=== PATIENT | female | born 1995 | race Caucasian/White ===

== ENCOUNTER 2017-12-11 18:19 | Emergency (ER) | payer OTHER ==
--- NOTE | 2017-12-11 18:30 | PDOC ---
Rapid Medical Evaluation Time Seen by Provider: 12/11/17 18:28 Medical Evaluation: Allergies Allergy/AdvReac Type Severity Reaction Status Date / Time No Known Allergies Allergy Verified 03/12/16 11:09 12/11/17 18:29 I have performed a brief in-person evaluation of this patient. The patient presents with a chief complaint of: abscess to left posterior thigh x 1 week, denies fever, chills, nausea, vomiting, diarrhea Pertinent physical exam findings: N/A I have ordered the following: upreg The patient will proceed to the ED for further evaluation. Discharge Disposition - Diagnosis Abscess - Referrals - Patient Instructions - Post Discharge Activity
[2017-12-11 18:31] VITALS: BP 184/93; PULSE 105; TEMP 99; BMI 52.8
--- NOTE | 2017-12-11 18:56 | PDOC ---
History of Present Illness - General Chief Complaint: Abscess Boil Stated Complaint: CYST Time Seen by Provider: 12/11/17 18:28 History Source: Patient Exam Limitations: No Limitations - History of Present Illness Timing/Duration: unsure Associated Symptoms: reports: denies symptoms, fever/chills Past History - Past Medical History Allergies/Adverse Reactions: Allergies Allergy/AdvReac Type Severity Reaction Status Date / Time No Known Allergies Allergy Verified 12/11/17 18:31 Home Medications: Ambulatory Orders NK [No Known Home Medication] 12/11/17 Asthma: Yes COPD: No - Suicide/Smoking/Psychosocial Hx Smoking Status: Yes Smoking History: Current every day smoker Have you smoked in the past 12 months: Yes Number of Cigarettes Smoked Daily: 2 Information on smoking cessation initiated: No Hx Alcohol Use: Yes (SOCIAL) Drug/Substance Use Hx: No Substance Use Type: None *Physical Exam - Vital Signs Last Vital Signs Temp Pulse Resp BP Pulse Ox 99.0 F 105 H 20 184/93 98 12/11/17 18:26 12/11/17 18:26 12/11/17 18:26 12/11/17 18:26 12/11/17 18:26 *DC/Admit/Observation/Transfer Diagnosis at time of Disposition: Abscess - Referrals - Patient Instructions - Post Discharge Activity
--- NOTE | 2017-12-11 19:03 | PDOC ---
History of Present Illness - General Chief Complaint: Abscess Boil Stated Complaint: CYST Time Seen by Provider: 12/11/17 18:28 History Source: Patient Exam Limitations: No Limitations - History of Present Illness Initial Comments: Patient came to emergency department for evaluation of abscess to her upper left thigh. States suffers from boils and frequent folliculitis of her upper legs and buttocks. Has never had an abscess such as this. Denies drainage from area but states is felt feverish the past few days. Timing/Duration: reports: changing over time, getting worse Severity: Yes: moderate Location: reports: extremities Associated Symptoms: reports: denies symptoms (left thigh) Past History - Travel Traveled outside of the country in the last 30 days: No Close contact w/someone who was outside of country & ill: No - Past Medical History Allergies/Adverse Reactions: Allergies Allergy/AdvReac Type Severity Reaction Status Date / Time No Known Allergies Allergy Verified 12/11/17 18:31 Home Medications: Ambulatory Orders Oxycodone HCl/Acetaminophen [Percocet 5-325 mg Tablet -] 1 - 2 tab PO Q4H PRN # 7 tablet MDD 4 12/11/17 Sulfamethoxazole/Trimethoprim [Bactrim *Ds*] 1 each PO BID #14 tablet 12/11/17 Asthma: Yes COPD: No - Suicide/Smoking/Psychosocial Hx Smoking Status: Yes Smoking History: Current every day smoker Have you smoked in the past 12 months: Yes Number of Cigarettes Smoked Daily: 2 Information on smoking cessation initiated: No Hx Alcohol Use: Yes (SOCIAL) Drug/Substance Use Hx: No Substance Use Type: None Review of Systems - Review of Systems Able to Perform ROS?: Yes Is the patient limited Maldivian proficient: Yes Constitutional: Yes: Symptoms Reported HEENTM: Yes: See HPI. No: Symptoms Reported Musculoskeletal: Yes: Symptoms Reported, See HPI, Muscle Pain Integumentary: Yes: Symptoms Reported, See HPI, Lesions, Lumps All Other Systems: Reviewed and Negative *Physical Exam - Vital Signs Last Vital Signs Temp Pulse Resp BP Pulse Ox 99.0 F 105 H 20 184/93 98 12/11/17 18:26 12/11/17 18:26 12/11/17 18:26 12/11/17 18:26 12/11/17 18:26 - Physical Exam General Appearance: Yes: Nourished, Appropriately Dressed, Apparent Distress, Mild Distress HEENT: positive: KARISSA, Normal ENT Inspection, TMs Normal, Pharynx Normal Gastrointestinal/Abdominal: positive: Soft. negative: Tender Musculoskeletal: positive: Normal Inspection Extremity: positive: Normal Inspection, Normal Range of Motion, Other ( alterable healed, scarred, and early lesions noted to upper thighs and buttocks. Has one abscess on her upper left thigh that is approximately 3 cm and fluctuant). negative: Normal Capillary Refill Integumentary: positive: Normal Color, Dry, Warm Neurologic: positive: site coordinator II-XII NML intact, Fully Oriented, Alert, Normal Mood/ Affect, Normal Response, Motor Strength 5/5 Procedures - Incision and Drainage I&D Site: Left: Leg Betadine cleansed: Yes Anesthesia: 1% Lidocaine Blade Size: 11 Iodinated Packin/2 in Plain Packing: Yes Complications: none Dressing: Yes Progress Note - Progress Note Progress Note: Abscess, incised and drained. Started on Bactrim and culture pending. Given one Percocet for pain relief *DC/Admit/Observation/Transfer Diagnosis at time of Disposition: Abscess - Discharge Dispostion Disposition: HOME Condition at time of disposition: Stable Admit: No - Prescriptions Prescriptions: Oxycodone HCl/Acetaminophen [Percocet 5-325 mg Tablet -] 1 - 2 tab PO Q4H PRN # 7 tablet MDD 4 PRN Reason: Pain Sulfamethoxazole/Trimethoprim [Bactrim *Ds*] 1 each PO BID #14 tablet - Referrals Referrals: Rafael Drew MD [Primary Care Provider] - - Patient Instructions Printed Discharge Instructions: DI for Incision and Drainage of a Skin Abscess Additional Instructions: Rest, keep area elevated. Avoid strenuous activity or exercise until wound is healed Use hot soaks to area to bring more blood to the surface and encourage drainage May change dressings as needed to keep clean - trying to avoid removal of packing for 2 days. If packing needs to be changed, return to emergency department or with your followup physician for wound care and evaluation and repacking as needed If packing needs to be removed, then in 2 days, while in the shower remove dressing and quickly pull the packing taken out. Allow water from shower to wash area thoroughly for 2-3 minutes, and pat dry upon exit of shower and replace dressing. Change his dressing daily until the wound is completely healed. May use Tylenol or Motrin for mild pain relief Use stronger medications as directed and prescribed Continue all medications as prescribed Followup with private physician in 2-3 days for wound check Return to emergency Department for worsening swelling, pain, redness, fevers as needed - Post Discharge Activity Forms/Work/School Notes: Back to Work
[2017-12-11] MEDS ORDERED: SULFAMETHOXAZOLE/TRIMETHOPRIM 800MG/160MG D.S. TABLET PO ONE (19:04)
[2017-12-11] MEDS ORDERED: SULFAMETHOXAZOLE/TRIMETHOPRIM 800MG/160MG D.S. TABLET ONE (19:05)
== END 2017-12-11 19:33 | disposition home or self-care (01) ==
LOC: JERFT 18:19
PROC: 0J9M0ZZ Drainage of Left Upper Leg Subcutaneous Tissue and Fascia, Open Approach (ICD-10-PCS; principal; 2017-12-11)
DX: L02.416 Cutaneous abscess of left lower limb (principal)
CPT/HCPCS: 84703; 87070; 87205; 99281-25

== ENCOUNTER 2018-01-06 16:31 | Emergency (ER) | payer OTHER ==
[2018-01-06 16:35] VITALS: BP 114/45; TEMP 98.6; BMI 52.2
[2018-01-06] MEDS ORDERED: ALBUTEROL SO4 2.5/IPRATROPIUM 0.5 INH SOL 3 ML VIAL.NEB. NEB ONE ×3 (16:36→18:42)
--- NOTE | 2018-01-06 16:37 | PDOC ---
Rapid Medical Evaluation Time Seen by Provider: 01/06/18 16:32 Medical Evaluation: Allergies Allergy/AdvReac Type Severity Reaction Status Date / Time No Known Allergies Allergy Verified 01/06/18 16:32 02 16:32 The patient presents with a chief complaint of: Flu symptoms since Saturday. Admits to lethargy, cough, fevers, body aches. Took advil this morning. I have performed a brief in-person evaluation of this patient; Pertinent physical exam findings: ambulatory, in no respiratory distress; Tachy at 110. Afebrile. expiratory wheezing b/l I have ordered the following: flu swab, duoneb The patient will proceed to the ED for further evaluation.
[2018-01-06] MEDS ORDERED: IBUPROFEN 400 MG TABLET (FP) PO ONE ×2 (17:47→17:51)
[2018-01-06] MEDS ORDERED: predniSONE 20 MG TABLET (UD) PO ONE (17:48)
[2018-01-06] MEDS ORDERED: predniSONE 20 MG TABLET (UD) ONE (17:50)
--- NOTE | 2018-01-06 17:51 | PDOC ---
History of Present Illness - General Chief Complaint: Cold Symptoms Stated Complaint: COLD SYMPTOMS Time Seen by Provider: 01/06/18 16:32 History Source: Patient - History of Present Illness Timing/Duration: reports: other (4 days) Associated Symptoms: reports: cough, fever/chills, muscle aches, shortness of breath, wheezing Past History - Past Medical History Allergies/Adverse Reactions: Allergies Allergy/AdvReac Type Severity Reaction Status Date / Time No Known Allergies Allergy Verified 01/06/18 16:32 Home Medications: Ambulatory Orders Prednisone [Deltasone -] 40 mg PO DAILY #8 tablet 01/06/18 Asthma: Yes COPD: No - Suicide/Smoking/Psychosocial Hx Smoking Status: Yes Smoking History: Current every day smoker Have you smoked in the past 12 months: Yes Number of Cigarettes Smoked Daily: 2 Information on smoking cessation initiated: Yes 'Breaking Loose' booklet given: 01/06/18 Hx Alcohol Use: Yes (SOCIAL) Drug/Substance Use Hx: No Substance Use Type: None Review of Systems - Review of Systems Constitutional: Yes: Chills, Fever, Malaise, Weakness HEENTM: No: Ear Pain, Throat Pain Respiratory: Yes: Cough, Shortness of Breath, Wheezing *Physical Exam - Vital Signs Last Vital Signs Temp Pulse Resp BP Pulse Ox 98.6 F 114 H 18 114/45 100 01/06/18 16:32 01/06/18 16:32 01/06/18 16:32 01/06/18 16:32 01/06/18 16:32 - Physical Exam General Appearance: Yes: Appropriately Dressed. No: Apparent Distress HEENT: positive: Normal ENT Inspection, Normal Voice. negative: Scleral Icterus (R), Scleral Icterus (L) Neck: positive: Supple. negative: Lymphadenopathy (R), Lymphadenopathy (L) Respiratory/Chest: positive: Wheezing. negative: Respiratory Distress Cardiovascular: positive: S1, S2, Tachycardia Gastrointestinal/Abdominal: positive: Soft. 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 States she developed some shortness of breath and wheezing this a.m., consistent with her asthma and has been using her pump with some relief. Pt in no apparent distress in ED but tachycardic at triage with diffuse mild wheezing on exam. Flu was sent from triage and pending. Will treat for acute asthma flare 01/06/18 17:50 01/06/18 18:37 Flu neg. Patient improved with nebs. No wheezing on reassessment and able to ambulate without shortness of breath. Will discharge with Pred burst and supportive treatment for viral syndrome *DC/Admit/Observation/Transfer Diagnosis at time of Disposition: Viral syndrome Asthma flare Qualifiers: Asthma severity: mild Asthma persistence: intermittent Qualified Code(s): J45.21 - Mild intermittent asthma with (acute) exacerbation - Discharge Dispostion Disposition: HOME Condition at time of disposition: Improved - Prescriptions Prescriptions: Prednisone [Deltasone -] 40 mg PO DAILY #8 tablet - Referrals Referrals: Rafael Drew MD [Primary Care Provider] - - Patient Instructions Printed Discharge Instructions: Asthma -- Adult, DI for Viral Upper Respiratory Infection -- Adult - Post Discharge Activity
[2018-01-06] MEDS: ALBUTEROL SO4 2.5/IPRATROPIUM 0.5 INH SOL 3 ML VIAL.NEB. NEB SCH ×4 (18:17→19:17)
[2018-01-06 18:56] VITALS: PULSE 90
== END 2018-01-06 19:19 | disposition home or self-care (01) ==
LOC: JERFT 16:31
PROC: 3E0F7GC Introduction of Other Therapeutic Substance into Respiratory Tract, Via Natural or Artificial Opening (ICD-10-PCS; principal; 2018-01-06)
PROC: 3E0F7GC Introduction of Other Therapeutic Substance into Respiratory Tract, Via Natural or Artificial Opening (ICD-10-PCS; 2018-01-06)
DX: J45.21 Mild intermittent asthma with (acute) exacerbation (principal); B34.9 Viral infection, unspecified
CPT/HCPCS: 87804; 94640; 99281-25

== ENCOUNTER 2018-05-22 12:39 | Emergency (ER) | payer OTHER ==
--- NOTE | 2018-05-22 12:49 | PDOC ---
History of Present Illness - General Stated Complaint: CONGESTION, COUGH Time Seen by Provider: 05/22/18 12:48 Past History - Past Medical History Allergies/Adverse Reactions: Allergies Allergy/AdvReac Type Severity Reaction Status Date / Time No Known Allergies Allergy Verified 01/06/18 16:32 Home Medications: Ambulatory Orders predniSONE [Deltasone -] 40 mg PO DAILY #8 tablet 01/06/18 Asthma: Yes COPD: No - Suicide/Smoking/Psychosocial Hx Smoking Status: Yes Smoking History: Current every day smoker Have you smoked in the past 12 months: Yes Number of Cigarettes Smoked Daily: 2 'Breaking Loose' booklet given: 01/06/18 Hx Alcohol Use: Yes (SOCIAL) Drug/Substance Use Hx: No Substance Use Type: None
[2018-05-22 13:18] VITALS: BP 134/81; PULSE 71; TEMP 98.5; BMI 51.5
--- NOTE | 2018-05-22 13:39 | PDOC ---
History of Present Illness - General Chief Complaint: Cold Symptoms Stated Complaint: CONGESTION, COUGH Time Seen by Provider: 05/22/18 12:48 History Source: Patient Exam Limitations: No Limitations - History of Present Illness Initial Comments: 05/22/18 13:34 Patient came to emergency department with complaints of cough, whitish phlegm production on occasion, and some intermittent tightness. Suffers from asthma but ran out of her albuterol pump. Denies fever, purulent drainage from nose, no ear or throat pain. 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 Timing/Duration: reports: just prior to arrival Severity: reports: mild Associated Symptoms: reports: cough, fever/chills, nasal congestion, nasal drainage Past History - Travel Traveled outside of the country in the last 30 days: No Close contact w/someone who was outside of country & ill: No - Past Medical History Allergies/Adverse Reactions: Allergies Allergy/AdvReac Type Severity Reaction Status Date / Time No Known Allergies Allergy Verified 05/22/18 13:18 Home Medications: Ambulatory Orders Albuterol Sulfate [Proventil HFA Inhaler -] 1 - 2 inh PO QID #1 inhaler Cetirizine HCl [Zyrtec -] 10 mg PO DAILY #30 tablet 05/22/18 Asthma: Yes COPD: No - Suicide/Smoking/Psychosocial Hx Smoking Status: Yes Smoking History: Current every day smoker Have you smoked in the past 12 months: Yes Number of Cigarettes Smoked Daily: 2 Information on smoking cessation initiated: No 'Breaking Loose' booklet given: 01/06/18 Hx Alcohol Use: No Drug/Substance Use Hx: No Substance Use Type: None Review of Systems - Review of Systems Able to Perform ROS?: Yes Is the patient limited [place] proficient: Yes Constitutional: Yes: Symptoms Reported, See HPI, Malaise Respiratory: Yes: Symptoms reported, See HPI, Cough (non productive ). No: Wheezing Cardiac (ROS): No: Symptoms Reported : No: Symptoms Reported Musculoskeletal: No: Symptoms Reported Integumentary: Yes: Symptoms Reported All Other Systems: Reviewed and Negative *Physical Exam - Vital Signs Last Vital Signs Temp Pulse Resp BP Pulse Ox 98.5 F 71 17 134/81 98 05/22/18 13:15 05/22/18 13:15 05/22/18 13:15 05/22/18 13:15 05/22/18 13:15 - Physical Exam General Appearance: Yes: Nourished, Appropriately Dressed. No: Apparent Distress HEENT: positive: KARISSA, Normal ENT Inspection, Normal Voice, TMs Normal, Pharynx Normal, Nasal Congestion, Rhinorrhea Neck: positive: Supple. negative: Tender, Lymphadenopathy (R), Lymphadenopathy (L) Respiratory/Chest: positive: Lungs Clear, Normal Breath Sounds. negative: Rhonchi, Wheezing Gastrointestinal/Abdominal: positive: Soft. negative: Tender Extremity: positive: Normal Inspection, Normal Range of Motion Integumentary: positive: Normal Color, Dry, Warm Neurologic: positive: instructional technology coordinator II-XII NML intact, Fully Oriented, Alert, Normal Mood/ Affect, Normal Response, Motor Strength /5 Progress Note - Progress Note Progress Note: ALLERGIC rhinitis, mild, we'll treat with albuterol pumps when necessary and encourage antihistamine use daily *DC/Admit/Observation/Transfer Diagnosis at time of Disposition: Allergic rhinitis Qualifiers: Allergic rhinitis trigger: unspecified Allergic rhinitis seasonality: seasonal Qualified Code(s): J30.2 - Other seasonal allergic rhinitis - Discharge Dispostion Disposition: HOME Condition at time of disposition: Stable Decision to Admit order: No - Referrals - Patient Instructions Printed Discharge Instructions: DI for Allergic Rhinitis Additional Instructions: Rest, drink lots of fluids: Teas, water, soups Saltwater gargles. Consider humidifier in room at night Steamy showers/seem to face break up mucus Avoid contact with allergens, exposure to pollens, close windows on a windy day Lots of handwashing and good hygiene Continue [id number] medications for symptomatic relief- may use allergic eyedrops for itching I Continue antihistamines daily until pollen season is over; Zyrtec, Claritin, Silvana during the daytime and Benadryl at nighttime as will make sleepy Tylenol or Motrin for fever and pain Followup with private physician in one to 2 days as needed Consider following up with an gang worker/rn cvor for skin testing and possible allergy shots Return to emergency department for worsened symptoms, fevers, dehydration - Post Discharge Activity Forms/Work/School Notes: Back to Work
== END 2018-05-22 15:15 | disposition home or self-care (01) ==
LOC: JERFT 12:39
DX: J30.2 Other seasonal allergic rhinitis (principal); J45.909 Unspecified asthma, uncomplicated
CPT/HCPCS: 84703; 99281-25

== ENCOUNTER 2019-02-27 20:21 | Emergency (ER) | payer OTHER ==
--- NOTE | 2019-02-27 20:28 | PDOC ---
Rapid Medical Evaluation Time Seen by Provider: 02/27/19 20:23 Medical Evaluation: Allergies Allergy/AdvReac Type Severity Reaction Status Date / Time No Known Allergies Allergy Verified 05/22/18 13:18 02/27/19 20:23 I have performed a brief in-person evaluation of this patient. The patient presents with a chief complaint of: RUQ pain x several days, no associated sxs Pertinent physical exam findings: Tachy to 108, in NAD, no sig ttp on exam I have ordered the following:labs The patient will proceed to the ED for further evaluation. Discharge Disposition - Diagnosis RUQ pain - Referrals - Patient Instructions - Post Discharge Activity
[2019-02-27 20:34] VITALS: BP 175/92; PULSE 108; TEMP 98.7; BMI 53.1
[2019-02-27 20:53] LABS: BASO % 0.5 % (0-2.0); EOS % 0.9 % (0-4.5); HEMATOCRIT 42.5 % (32.4-45.2); HEMOGLOBIN 14.1 GM/dL (10.7-15.3); LYMPH % 37.3 % (8-40); MCH 29.5 pg (25.7-33.7); MCHC 33.1 g/dl (32.0-36.0); MEAN CELL VOLUME 88.9 fl (80-96); MEAN PLT VOLUME 7.8 fl (7.5-11.1); MONO % 4.9 % (3.8-10.2); NEUT % 56.4 % (42.8-82.8); PLATELET COUNT 275 K/MM3 (134-434); RBC 4.78 M/mm3 (3.60-5.2); RDW 12.7 % (11.6-15.6); WHITE BLOOD COUNT 11.3 K/mm3 (4.0-10.0)
[2019-02-27 20:57] LABS: HCG,QUALITATIVE URINE Negative; HYALINE CASTS 5 /hpf (0-8); PH,URINE 5.5 (5.0-8.0); URINE APPEARANCE CLEAR; URINE BACTERIA 328.4 /hpf (NEGATIVE); URINE BILIRUBIN NEGATIVE (NEGATIVE); URINE COLOR YELLOW; URINE GLUCOSE (UA) NEGATIVE (NEGATIVE); URINE KETONE TRACE (NEGATIVE); URINE LEUK ESTERASE 1+ (NEGATIVE); URINE NITRITE NEGATIVE (NEGATIVE); URINE PROTEIN NEGATIVE (NEGATIVE); URINE RBC 9 /hpf (0-4); URINE UROBILINOGEN 0.2 mg/dL (0.2-1.0); URINE WBC 10 /hpf (0-5)
--- NOTE | 2019-02-27 21:19 | PDOC ---
History of Present Illness <Tyra Luong - Last Filed: 02/28/19 00:25> - History of Present Illness Initial Comments: 02/27/19 21:18 Ms. Kendall is a 23 yo female w/ pmh of morbid obesity who presents for evaluation of 3-4 day history of RUQ abdominal pain. Patient reports it had been intermittent and unrelated to activity or PO intake until today when she began to experience "stabbing pain" that also occurred intermittently. Patient denies any other associated symptoms at this time. The patient denies chest pain, shortness of breath, headache and dizziness. Denies fever, chills, nausea, vomit, diarrhea and constipation. Denies dysuria, frequency, urgency and hematuria. <Julito Cross - Last Filed: 02/28/19 00:35> - General Chief Complaint: Pain Stated Complaint: RIGHT ABD PAIN Time Seen by Provider: 02/27/19 20:23 Past History <Tyra Luong - Last Filed: 02/28/19 00:25> - Past Medical History Asthma: Yes Cancer: No Cardiac Disorders: No CVA: No COPD: No - Surgical History Abdominal Surgery: No Appendectomy: No - Suicide/Smoking/Psychosocial Hx Smoking Status: Yes Smoking History: Current every day smoker Have you smoked in the past 12 months: Yes Number of Cigarettes Smoked Daily: 3 Information on smoking cessation initiated: No 'Breaking Loose' booklet given: 01/06/18 Hx Alcohol Use: No Drug/Substance Use Hx: No Substance Use Type: None <Julito Cross - Last Filed: 02/28/19 00:35> - Past Medical History Allergies/Adverse Reactions: Allergies Allergy/AdvReac Type Severity Reaction Status Date / Time No Known Allergies Allergy Verified 05/22/18 13:18 Home Medications: Ambulatory Orders Albuterol Sulfate [Proventil HFA Inhaler -] 1 - 2 inh PO QID #1 inhaler Cetirizine HCl [Zyrtec -] 10 mg PO DAILY #30 tablet 05/22/18 Cephalexin [Keflex] 500 mg PO TID #21 capsule 02/28/19 Review of Systems - Review of Systems Comments:: 02/27/19 21:18 GENERAL/CONSTITUTIONAL: No fever or chills. No weakness. HEAD, EYES, EARS, NOSE AND THROAT: No change in vision. No ear pain or discharge. No sore throat. CARDIOVASCULAR: No chest pain or shortness of breath RESPIRATORY: No cough, wheezing, or hemoptysis. GASTROINTESTINAL: +RUQ abdominal pain as described. No nausea, vomiting, diarrhea or constipation. GENITOURINARY: No dysuria, frequency, or change in urination. MUSCULOSKELETAL: No joint or muscle swelling or pain. No neck or back pain. SKIN: No rash NEUROLOGIC: No headache, vertigo, loss of consciousness, or change in strength/ sensation. ENDOCRINE: No increased thirst. No abnormal weight change HEMATOLOGIC/LYMPHATIC: No anemia, easy bleeding, or history of blood clots. ALLERGIC/IMMUNOLOGIC: No hives or skin allergy. <Julito Cross - Last Filed: 02/28/19 00:35> *Physical Exam - Vital Signs Last Vital Signs Temp Pulse Resp BP Pulse Ox 98.7 F 108 H 20 175/92 H 99 02/27/19 20:25 02/27/19 20:25 02/27/19 20:25 02/27/19 20:25 02/27/19 20:25 <Tyra Luong - Last Filed: 02/28/19 00:25> - Vital Signs Last Vital Signs Temp Pulse Resp BP Pulse Ox 98.7 F 108 H 20 175/92 H 99 02/27/19 20:25 02/27/19 20:25 02/27/19 20:25 02/27/19 20:25 02/27/19 20:25 - Physical Exam Comments: 02/27/19 21:18 GENERAL: +Patient morbidly obese. Awake, alert, and fully oriented, in no acute distress HEAD: No signs of trauma, normocephalic, atraumatic EYES: PERRLA, EOMI, sclera anicteric, conjunctiva clear ENT: Auricles normal inspection, hearing grossly normal, nares patent, oropharynx clear without exudates. Moist mucosa NECK: Normal ROM, supple, no lymphadenopathy, JVD, or masses LUNGS: No distress, speaks full sentences, clear to auscultation bilaterally HEART: Regular rate and rhythm, normal S1 and S2, no murmurs, rubs or gallops, peripheral pulses normal and equal bilaterally. ABDOMEN: +Mild RUQ TTP, R flank pain. Soft, normoactive bowel sounds. No guarding, no rebound. No masses EXTREMITIES: Normal inspection, Normal range of motion, no edema. No clubbing or cyanosis. NEUROLOGICAL: Cranial nerves II through XII grossly intact. Normal speech, normal gait, no focal sensorimotor deficits SKIN: Warm, Dry, normal turgor, no rashes or lesions noted. <DavidantoineJulito cast - Last Filed: 02/28/19 00:35> ED Treatment Course - LABORATORY CBC & Chemistry Diagram: 02/27/19 20:37 02/27/19 20:37 - ADDITIONAL ORDERS Additional order review: Laboratory Results 02/27/19 02/27/19 20:41 20:37 Sodium 140 Potassium 3.6 Chloride 107 Carbon Dioxide 26 Anion Gap 7 L BUN 11 Creatinine 0.7 Creat Clearance w eGFR 103.70 Random Glucose 102 Calcium 8.5 Total Bilirubin 0.1 L AST 13 L ALT 22 Alkaline Phosphatase 84 Total Protein 7.4 Albumin 3.9 Lipase 176 Urine Color Yellow Urine Appearance Clear Urine pH 5.5 Ur Specific [place] 1.025 Urine Protein Negative Urine Glucose (UA) Negative Urine Ketones Trace H Urine Blood Negative Urine Nitrite Negative Urine Bilirubin Negative Urine Urobilinogen 0.2 Ur Leukocyte Esterase 1+ H Urine WBC (Auto) 10 Urine RBC (Auto) 9 Urine Casts (Auto) 5 U Epithel Cells (Auto) 5.0 Urine Bacteria (Auto) 328.4 Urine HCG, Qual Negative 02/27/19 20:37 RBC 4.78 MCV 88.9 MCHC 33.1 RDW 12.7 MPV 7.8 Neutrophils % 56.4 Lymphocytes % 37.3 Monocytes % 4.9 Eosinophils % 0.9 Basophils % 0.5 - RADIOLOGY Radiology Studies Ordered: Category Date Time Status SPIRAL- RENAL-STONE CT [CT] Stat CT Scan 02/27/19 22:15 Completed ABDOMEN US -LIMITED [US] Stat Ultrasound 02/27/19 21:31 Taken - Medications Given in the ED: ED Medications Discontinued Medications Generic Name Dose Route Start Last Admin Trade Name Freq PRN Reason Stop Dose Admin Cephalexin HCl 500 mg 02/27/19 23:02 02/27/19 23:12 Keflex - PO 02/27/19 23:03 500 mg ONCE ONE Administration Ibuprofen 600 mg 02/27/19 23:02 02/27/19 23:12 Motrin - PO 02/27/19 23:03 600 mg ONCE ONE Administration <Tyra Luong - Last Filed: 02/28/19 00:25> - LABORATORY CBC & Chemistry Diagram: 02/27/19 20:37 02/27/19 20:37 - ADDITIONAL ORDERS Additional order review: Laboratory Results 02/27/19 20:41 Urine Color Yellow Urine Appearance Clear Urine pH 5.5 Ur Specific [place] 1.025 Urine Protein Negative Urine Glucose (UA) Negative Urine Ketones Trace H Urine Blood Negative Urine Nitrite Negative Urine Bilirubin Negative Urine Urobilinogen 0.2 Ur Leukocyte Esterase 1+ H Urine WBC (Auto) 10 Urine RBC (Auto) 9 Urine Casts (Auto) 5 U Epithel Cells (Auto) 5.0 Urine Bacteria (Auto) 328.4 Urine HCG, Qual Negative 02/27/19 20:37 RBC 4.78 MCV 88.9 MCHC 33.1 RDW 12.7 MPV 7.8 Neutrophils % 56.4 Lymphocytes % 37.3 Monocytes % 4.9 Eosinophils % 0.9 Basophils % 0.5 <Julito Cross - Last Filed: 02/28/19 00:35> Medical Decision Making - Medical Decision Making 02/28/19 00:32 Ms. Kendall is a 23 yo female w/ pmh as described who presents for evaluation of symptoms concerning for cholecystitis vs. UTI vs. pyelonephritis. Patient evaluated with labs as below and found to have UTI. CT/US performed to r/o cholelithiasis/pyelonephritis/kidney stone both negative. ABX sent to patient's pharmacy for UTI. No concern for acute process at this time. Discharging to home. Laboratory Results - last 24 hr 02/27/19 02/27/19 02/27/19 20:37 20:37 20:41 WBC 11.3 H RBC 4.78 Hgb 14.1 Hct 42.5 MCV 88.9 MCH 29.5 MCHC 33.1 RDW 12.7 Plt Count 275 MPV 7.8 Absolute Neuts (auto) 6.4 Neutrophils % 56.4 Lymphocytes % 37.3 Monocytes % 4.9 Eosinophils % 0.9 Basophils % 0.5 Nucleated RBC % 0 Sodium 140 Potassium 3.6 Chloride 107 Carbon Dioxide 26 Anion Gap 7 L BUN 11 Creatinine 0.7 Creat Clearance w eGFR 103.70 Random Glucose 102 Calcium 8.5 Total Bilirubin 0.1 L AST 13 L ALT 22 Alkaline Phosphatase 84 Total Protein 7.4 Albumin 3.9 Lipase 176 Urine Color Yellow Urine Appearance Clear Urine pH 5.5 Ur Specific [place] 1.025 Urine Protein Negative Urine Glucose (UA) Negative Urine Ketones Trace H Urine Blood Negative Urine Nitrite Negative Urine Bilirubin Negative Urine Urobilinogen 0.2 Ur Leukocyte Esterase 1+ H Urine WBC (Auto) 10 Urine RBC (Auto) 9 Urine Casts (Auto) 5 U Epithel Cells (Auto) 5.0 Urine Bacteria (Auto) 328.4 Urine HCG, Qual Negative <Julito Cross - Last Filed: 02/28/19 00:35> *DC/Admit/Observation/Transfer - Discharge Dispostion Decision to Admit order: No <Tyra Luong - Last Filed: 02/28/19 00:25> <Julito Cross - Last Filed: 02/28/19 00:35> Diagnosis at time of Disposition: RUQ pain UTI (urinary tract infection) Qualifiers: Urinary tract infection type: site unspecified Hematuria presence: without hematuria Qualified Code(s): N39.0 - Urinary tract infection, site not specified - Discharge Dispostion Disposition: HOME Condition at time of disposition: Stable - Prescriptions Prescriptions: Cephalexin [Keflex] 500 mg PO TID #21 capsule - Patient Instructions Printed Discharge Instructions: Eating a Diet Rich in Fruits and Vegetables, Urinary Tract Infection Additional Instructions: You were evaluated today in the ER for your pain and found to have a UTI. We performed CT and ultrasound imaging with no further concerning findings. We started you on antibiotics and sent medication to your pharmacy. Take all medications as proscribed. Follow-up with primary care provider early next week for further evaluation. Return to ER if any fever, chills, increase in pain, or other concerning symptoms.
[2019-02-27 21:21] LABS: ALBUMIN 3.9 g/dl (3.4-5.0); ALK PHOS 84 U/L (45-117); ANION GAP 7 MMOL/L (8-16); BILIRUBIN,TOTAL 0.1 mg/dL (0.2-1); BLOOD UREA NITROGEN 11 mg/dL (7-18); CALCIUM 8.5 mg/dL (8.5-10.1); CHLORIDE 107 mmol/L (98-107); CO2 26 mmol/L (21-32); CREATININE 0.7 mg/dL (0.55-1.3); GLUCOSE,RANDOM 102 mg/dL (74-106); LIPASE 176 U/L (73-393); POTASSIUM 3.6 mmol/L (3.5-5.1); SGOT/AST 13 U/L (15-37); SGPT/ALT 22 U/L (13-61); SODIUM 140 mmol/L (136-145); TOT PROT 7.4 g/dl (6.4-8.2)
--- NOTE | 2019-02-27 21:30 | PDOC ---
Attending Attestation - Resident Resident Name: Julito Cross - ED Attending Attestation I have performed the following: I have examined & evaluated the patient, The case was reviewed & discussed with the resident, I agree w/resident's findings & plan - Medical Decision Making 02/27/19 23:04 CT AP normal; however, mom had a GB removal 3-4 years ago and pt is morbidly obese and she is complaining of RUQ pain and she has pain with palpation of the RUQ beneath the ribs. I will get a sono of the GB to r/o cholecystitis or stones. Labs demonstrate UTI. We will treat with keflex. <Tyra Luong - Last Filed: 02/27/19 23:04> - HPI HPI: 02/27/19 23:09 The patient is a 23 year old female with no reported past medical history presents to the emergency department with abdominal pain. The patient presents with 3-4 days of right upper quadrant and right flank pain that radiates to the back. The patient reports the pains been ongoing for the past 4-5 days, denies any known aggravation or alleviation factor. Denies nausea, vomiting, diarrhea, constipation, fever, chills, cough, dysuria, hematuria, frequency or urgency to urinate. - Physicial Exam PE: 02/27/19 23:09 GENERAL: The patient is in no acute distress. Afebril. NECK: Normal range of motion, supple, no nuchal rigidity LUNGS: Breath sounds equal, clear to auscultation bilaterally. No wheezes, and no crackles. HEART: Regular rate and rhythm, normal S1 and S2 without murmur, rub or gallop. ABDOMEN: No flank tenderness, minimal tenderness with pressing the right anterior floating ribs, minimal RUQ tenderness palpation beneath the ribs, no rebound or guarding. No supra-pubic tenderess EXTREMITIES: Normal range of motion, no edema. No spinal tenderness. No pitting edema. NEUROLOGICAL: Cranial nerves II through XII grossly intact. Normal speech. No focal neurological deficits. SKIN: Warm, Dry, normal turgor, no rashes or lesions noted. No rash on the trunk. - Medical Decision Making 02/27/19 23:09 Documentation prepared by Eugenia Velasco, acting as medical technologist prn for Tyra Luong MD <Eugenia Velasco - Last Filed: 02/27/19 23:09>
[2019-02-27] MEDS ORDERED: CEPHALEXIN MONOHYDRATE 500 MG CAPSULE (UD) PO ONE (23:02)
[2019-02-27] MEDS ORDERED: IBUPROFEN 600 MG TABLET (FP) PO ONE ×2 (23:02→23:10)
[2019-02-27] MEDS ORDERED: CEPHALEXIN MONOHYDRATE 500 MG CAPSULE (UD) ONE (23:10)
== END 2019-02-28 00:39 | disposition home or self-care (01) ==
LOC: JER 20:21
DX: N39.0 Urinary tract infection, site not specified (principal); R10.11 Right upper quadrant pain; E66.01 Morbid (severe) obesity due to excess calories; Z68.43 Body mass index [BMI] 50.0-59.9, adult
CPT/HCPCS: 36415; 74176-TC; 76705-TC; 80053; 81003; 83690; 84703; 85025; 99282-25

== ENCOUNTER 2023-06-26 05:34 | Day surgery (SDC) | payer OTHER ==
[2023-06-26 05:44] VITALS: BMI 60.5
[2023-06-26] MEDS ORDERED: ACETAMINOPHEN 1000 MG/100 ML BAG IVPB ONE ×2 (07:18→17:22)
[2023-06-26] MEDS ORDERED: ONDANSETRON 4 MG/2 ML VIAL IVPUSH ONE (07:18)
[2023-06-26] MEDS ORDERED: SODIUM CHLORIDE 1,000 ML IV STA (07:18)
[2023-06-26] MEDS ORDERED: ACETAMINOPHEN INJECTION 100 ML IVPB ONE ×2 (08:52→17:57)
[2023-06-26] MEDS ORDERED: ONDANSETRON 4 MG/2 ML VIAL ONE ×2 (08:52→16:25)
[2023-06-26 08:53] LABS: BASO % 0.3 % (0-2.0); EOS % 0.3 % (0-4.5); HEMATOCRIT 42.8 % (32.4-45.2); HEMOGLOBIN 13.8 GM/dL (10.7-15.3); LYMPH % 17.5 % (8-40); MCH 28.6 pg (25.7-33.7); MCHC 32.3 g/dl (32.0-36.0); MEAN CELL VOLUME 88.4 fl (80-96); MEAN PLT VOLUME 8.4 fl (7.5-11.1); NEUT % 74.9 % (42.8-82.8); PLATELET COUNT 285 10^3/uL (134-434); RBC 4.84 M/mm3 (3.60-5.2); WHITE BLOOD COUNT 8.2 K/mm3 (4.0-10.0)
[2023-06-26 09:00] LABS: CHLORIDE 109 mmol/L (98-107); POTASSIUM 4.5 mmol/L (3.5-5.1); SODIUM 140 mmol/L (136-145)
[2023-06-26 09:02] LABS: CALCIUM 8.6 mg/dL (8.5-10.1)
[2023-06-26 09:03] LABS: ALBUMIN 3.5 g/dl (3.4-5.0); ANION GAP 5 MMOL/L (8-16); BLOOD UREA NITROGEN 10.8 mg/dL (7-18); CO2 26 mmol/L (21-32); GLUCOSE,RANDOM 113 mg/dL (74-106); LIPASE 143 U/L (73-393)
[2023-06-26 09:06] LABS: CREATININE 0.8 mg/dL (0.55-1.3); SGOT/AST 245 U/L (15-37); SGPT/ALT 163 U/L (13-61)
[2023-06-26 09:07] LABS: TOT PROT 7.2 g/dl (6.4-8.2)
[2023-06-26 09:08] LABS: BILIRUBIN,TOTAL 1.2 mg/dL (0.2-1)
[2023-06-26 09:09] LABS: ALK PHOS 113 U/L (45-117)
[2023-06-26] MEDS ORDERED: PIPERACILLIN/TAZOB 3.375 GM 3.375 GM in DEXTROSE 5%-WATER - 50 ML IVPB ONE (10:21)
[2023-06-26] MEDS ORDERED: PIPERACILLIN/TAZOB 3.375 GM 3.375 GM/50 ML BAG IVPB ONE (11:30)
[2023-06-26 12:01] LABS: INR 1.09 (0.83-1.09); PROTHROMBIN TIME (PATIENT) 12.6 SEC (9.7-13.0)
[2023-06-26 12:05] LABS: BILIRUBIN,DIRECT 0.7 mg/dL (0.0-0.2)
[2023-06-26 12:53] LABS: AMYLASE 30 U/L (25-115)
[2023-06-26] MEDS ORDERED: ALBUTEROL SO4 HFA INHALER IH PRN ×2 (13:54→17:31)
[2023-06-26] MEDS ORDERED: BUPIVACAINE HCL/PF 0.25% (2.5MG/ML) 10 ML VIAL ONE ×2 (14:13→14:48)
[2023-06-26] MEDS ORDERED: INDOCYANINE GREEN 25 MG/10 ML VIAL IVPUSH ONE (14:47)
[2023-06-26] MEDS ORDERED: HEPARIN NA (PORCINE) 5,000 UNITS/ML 1ML VIAL ONE (14:48)
[2023-06-26] MEDS ORDERED: PROPOFOL 20 ML ONE ×2 (15:27→16:23)
[2023-06-26] MEDS ORDERED: ROCURONIUM BROMIDE 50 MG/5 ML SYRINGE ONE ×2 (15:27→16:05)
[2023-06-26] MEDS ORDERED: MIDAZOLAM HCL 2 MG/2 ML SINGLE DOSE VIAL ONE (15:27)
[2023-06-26] MEDS ORDERED: cefOXitin SODIUM 2 GM VIAL (RESTRICTED TO ID) IVPB ONE (15:57)
[2023-06-26] MEDS ORDERED: SODIUM CHLORIDE IVPB ONE (16:00)
[2023-06-26] MEDS ORDERED: CEFOXITIN SODIUM IVPB ONE (16:00)
[2023-06-26] MEDS ORDERED: BUPIVACAINE HCL/PF 0.25% (2.5MG/ML) 10 ML VIAL IJ ONE (16:02)
[2023-06-26] MEDS ORDERED: NEOSTIGMINE METHYLSULFATE 0.5 MG/1 ML - 10 ML MDV ONE (16:24)
[2023-06-26] MEDS ORDERED: GLYCOPYRROLATE 0.2 MG/1 ML VIAL ONE (16:24)
[2023-06-26] MEDS ORDERED: DEXAMETHASONE SOD PHOSPHATE 4 MG/1 ML VIAL ONE (16:25)
[2023-06-26] MEDS ORDERED: KETOROLAC TROMETHAMINE 30 MG/1 ML VIAL ONE (16:25)
[2023-06-26] MEDS ORDERED: oxyCODONE HCL 5 MG TABLET PO PRN ×4 (16:54→17:31)
[2023-06-26] MEDS ORDERED: ACETAMINOPHEN 1000 MG/100 ML BAG IVPB SCH ×2 (17:00→23:00)
[2023-06-26] MEDS ORDERED: KETOROLAC TROMETHAMINE 30 MG/1 ML VIAL IVPUSH PRN ×3 (17:02→23:00)
[2023-06-26] MEDS ORDERED: ONDANSETRON 4 MG/2 ML VIAL IVPUSH PRN ×2 (17:22→17:31)
[2023-06-26] MEDS ORDERED: LACTATED RINGERS SOLUTION 1,000 ML IV SCH ×2 (17:30→17:31)
[2023-06-26] MEDS ORDERED: KETOROLAC TROMETHAMINE 30 MG/1 ML VIAL IVPUSH SCH (18:00)
[2023-06-26] MEDS ORDERED: DOCUSATE SODIUM 100 MG CAPSULE (FP) PO SCH (22:00)
[2023-06-26 22:02] LABS: INR 1.12 (0.83-1.09)
[2023-06-26] MEDS: ACETAMINOPHEN 1000 MG/100 ML BAG IVPB SCH (23:24)
[2023-06-26] MEDS: DOCUSATE SODIUM 100 MG CAPSULE (FP) PO SCH (23:25)
[2023-06-27] MEDS: ACETAMINOPHEN 1000 MG/100 ML BAG IVPB SCH ×2 (06:06→10:20)
[2023-06-27 10:00] LABS: HEMATOCRIT 38.9 % (32.4-45.2); HEMOGLOBIN 13.2 GM/dL (10.7-15.3); MCH 29.4 pg (25.7-33.7); MCHC 34.1 g/dl (32.0-36.0); MEAN CELL VOLUME 86.3 fl (80-96); MEAN PLT VOLUME 7.9 fl (7.5-11.1); PLATELET COUNT 288 10^3/uL (134-434); RBC 4.51 M/mm3 (3.60-5.2); RDW 12.9 % (11.6-15.6); WHITE BLOOD COUNT 10.6 K/mm3 (4.0-10.0)
[2023-06-27] MEDS ORDERED: HYDROCORTISONE 2.5% TOPICAL CREAM 30 GM TUBE TP SCH ×2 (10:00)
[2023-06-27] MEDS ORDERED: PANTOPRAZOLE 40 MG TABLET PO SCH ×2 (10:00)
[2023-06-27] MEDS: DOCUSATE SODIUM 100 MG CAPSULE (FP) PO SCH (10:22)
[2023-06-27 10:49] LABS: POTASSIUM 4.6 mmol/L (3.5-5.1)
[2023-06-27 10:59] LABS: CALCIUM 8.2 mg/dL (8.5-10.1)
[2023-06-27 11:00] LABS: ALBUMIN 2.9 g/dl (3.4-5.0); BLOOD UREA NITROGEN 9.7 mg/dL (7-18)
[2023-06-27 11:03] LABS: BILIRUBIN,TOTAL 0.6 mg/dL (0.2-1); CREATININE 0.6 mg/dL (0.55-1.3); TOT PROT 6.1 g/dl (6.4-8.2)
[2023-06-27 14:06] VITALS: BP 134/85; PULSE 64; RESP 18; TEMP 98.5
== END 2023-06-27 15:40 | disposition home or self-care (01) ==
LOC: JER 05:34 → JERBED 10:33 → UNDOADMIN 10:33 → SUATTDRO 11:49 → JASUSAT 11:49 → J6S 19:37 → JASUSAT 06-27 15:40
PROVIDERS: ATTEND Nurse Practitioner Family
PROC: 0FT44ZZ Resection of Gallbladder, Percutaneous Endoscopic Approach (ICD-10-PCS; principal; 2023-06-26 15:00)
DX: K81.0 Acute cholecystitis (principal)
CPT/HCPCS: 36415; 76705-TC; 80053; 82150; 82248; 83690; 84702; 84703; 85025; 85027; 85610; 85730; 86850; 86900; 86901; 88304-TC; 93005; 93010; 94010; 94760; 99285-25; J1644